=== PATIENT | female | born 1950 | race Hispanic/Latino ===

== ENCOUNTER 2018-09-18 06:26 | Day surgery (SDC) | payer MEDICARE ==
--- OUTSIDE RECORDS SUMMARY | 2018-09-18 06:30 | XMS REPORT | Clinical Summary ---
:1950 Author Organization [facility] Address [address] [place] [address] Care Team Providers Name Role Phone Evaristo Salmeron MD Primary Care Provider Allergies No Known Allergies Medications Medication Sig Dispensed Refills Start Date End Date Status temazepam (RESTORIL) 30 Take 30 mg by 0 Active mg capsule mouth nightly as needed for sleep. levothyroxine Take 50 mcg by 0 Active (SYNTHROID, LEVOXYL) 50 mouth every mcg tablet morning. nitroglycerin Place 1 patch on 0 Active (NITRODUR) 0.4 mg/hr the skin daily. nitroglycerin Place 1 spray 0 Active (NITROLINGUAL) 400 under the tongue mcg/spray spray every 5 (five) minutes as needed for chest pain. metoprolol succinate XL Take 50 mg by 0 Active (TOPROL-XL) 50 mg 24 hr mouth daily. tablet diclofenac-misoprostol Take 1 tablet by 0 Active (ARTHROTEC 75) 75-200 mouth 2 (two) mg-mcg EC tablet times a day. aspirin (ECOTRIN) 81 MG Take 81 mg by 0 Active enteric coated tablet mouth daily. omega-3 acid ethyl Take 1 g by mouth 0 Active esters (LOVAZA) 1 gram 2 (two) times a capsule day. isosorbide dinitrate Take 30 mg by 0 Active (ISORDIL) 30 MG tablet mouth 4 (four) times a day. triamterene-hydrochloro Take 1 tablet by 0 Active thiazid (MAXZIDE-25) mouth daily. 37.5-25 mg per tablet atorvastatin (LIPITOR) Take 20 mg by 0 Active 20 MG tablet mouth daily. Default OP ins ranolazine (RANEXA) 500 Take 500 mg by 0 Active MG 12 hr ER tablet mouth 2 (two) times a day. Active Problems No known active problems Social History Tobacco Use Types Packs/Day Years Used Date Never Smoker Alcohol Use Drinks/Week oz/Week Comments No Sex Assigned at Date Recorded Not on file Job Start Date Occupation Industry Not on file Not on file Not on file Travel History Travel Start Travel End No recent travel history available. Last Filed Vital Signs Not on file Plan of Treatment Health Maintenance Due Date Last Done Comments BREAST CANCER SCREENING 2001 COLONOSCOPY SCREENING 2001 SHINGLES VACCINES (#1) 2001 65+ PNEUMOCOCCAL VACCINE (1 of 2 - PCV13) 02/08/2016 INFLUENZA VACCINE 10/25/2018 Results Not on fileafter 09/17/2017 Insurance Payer Benefit Plan / Subscriber ID Effective Dates Phone Address Type Group MEDICARE MEDICARE PART A xxxxxxxxxx 2009-[employer] [place] Medicare AND B t AARP AARP SUPPLEMENT xxxxxxxxxxx 2016-Present Commercial Advance Directives Patient has advance care planning documents on file. For more information, please contact:[place] [address]
[2018-09-18] MEDS: KETOROLAC OPTHALMIC 5 ML BOT ONE ×3 (07:00→07:30)
[2018-09-18] MEDS: PHENYLEPHRINE 10% OPTH 5ML ONE ×3 (07:00→07:30)
[2018-09-18] MEDS: CYCLOPENTOLATE 2% OPTH 2 ML ONE ×3 (07:00→07:30)
[2018-09-18] MEDS: TROPICAMIDE 1% OPTH 3 ML BOT ONE ×3 (07:00→07:30)
[2018-09-18] MEDS: MOXIFLOXACIN HCL 0.5% 3ML OPTH OPTH ONE ×3 (07:00→07:30)
[2018-09-18] MEDS ORDERED: Ringers Lactate 1,000 ML IV ONE (07:12)
[2018-09-18] MEDS ORDERED: PROPOFOL 200 MG/20 ML VIAL IV ONE (07:34)
[2018-09-18] MEDS ORDERED: FENTANYL CITR 100 MCG/2 ML ONE (07:34)
[2018-09-18] MEDS ORDERED: LIDOCAINE 2% MPF 5 ML VIAL ONE (07:34)
[2018-09-18] MEDS ORDERED: MIDAZOLAM HCL 2 MG/2 ML INJ ONE (07:34)
[2018-09-18] MEDS ORDERED: BALANCED SALT IRRIG PLAIN 500 ML BTL IRR ONE (07:39)
[2018-09-18] MEDS ORDERED: EPINEPHRINE/PF 1 MG/ML AMP ONE (07:39)
[2018-09-18] MEDS ORDERED: TOBRADEX 0.3-0.1% OPTH OINTMENT ONE (07:40)
[2018-09-18] MEDS ORDERED: DUOVISC 1 KIT OPTH ONE (07:40)
[2018-09-18] MEDS ORDERED: HYALURONATE SODIUM 14 MG/ML SYR OPTH ONE (07:40)
[2018-09-18] MEDS ORDERED: GLYCOPYRROLATE 0.2 MG/ML SYR ONE (08:34)
[2018-09-18] MEDS ORDERED: EPHEDRINE SULF 50 MG/ML VIAL ONE (08:44)
--- NOTE | 2018-09-18 19:35 | OP ---
Date of Procedure: 09/18/2018 Surgeon: Guanakito Batista MD Preoperative Diagnosis: Visually significant cataract, right eye. Postoperative Diagnosis: Visually significant cataract, right eye. Procedure Performed: Complex cataract extraction right eye with placement of intraocular lens and CT R for zonular dialysis. Description Of Procedure: After being properly identified in the preoperative holding, the patient w as taken back to the operating room where a time-out was performed. The patient was then prepped and draped in the normal sterile fashion. Examination of the eye underneath the operating microscope re vealed a well-dilated pupil but with visible visualization of the zonules 360 degree. However, it di d appear to have a good red reflex and no loss of round contour to any of the lens was seen prior to initiation of surgery. Grasping the globe with a pair of 0.12 forceps, a paracentesis wound was made in the anterior chamber filled with Viscoat. Then, using a 2.75 mm Keratome blade, a superior incis ion wound was made. During this entry incision, a small tear in the disc space was noted extending a nd adjacent from the main incision. However, this did not pose a problem during the surgery or expan d any throughout the procedure. Using a pair of calipers set to 6 mm, this was held over the limbus and each of the 4 quadrants to find the anatomical center, and then the 6 mm caliper was centered ove r that in order to size our capsulorrhexis in. A continuous curvilinear capsulorrhexis was created u sing a cystotome and completed with an Utrata forceps. Of pertinent note, the anterior capsule displ ayed extreme laxity at this point, nevertheless, the capsulotomy was able to be carried out without c omplication. Hydrodissection and hydrodelineation were carefully carried out using a Hinojosa cannula a nd then the lens nucleus again very gently rotated. The cataract was removed using a standard divide and conquer technique. Once all 4 quadrants had been removed, the phaco handpiece was exchanged for an irrigation aspiration handpiece and the remaining cortical material was removed. A capsular paus e was undertaken and then the capsular bag inflated with DuoVisc and a 12.0 mm CTR model [id number] mad e by Lane, serial #[id number] was placed inside the capsular bag. The multifocal lens, a model ZXR 00 by Ronaldo and Ronaldo, power 22.0 diopter, serial #[id number] was injected into the capsular bag. Then the haptics were rotated to the horizontal position. The remaining viscoelastic was then brook ana laura and the wound hydrated. The superior wound displayed a small amount of leakage and despite of th e injection of an air bubble, it was not as tight as I would have liked it and therefore a single 10- 0 nylon suture was placed, which ensured complete tightness. The globe was again inflated to a good amount, and the procedure concluded with the lid speculum and drapes removed. The patient was patche d over TobraDex ointment and taken to the postoperative holding in stable condition having tolerated the procedure well. There were no complications other than the small Descemet's tear noted at the be ginning, but again this did not extend during the case and as well as out of the visual axis and shou ld not pose any significant visual problems or other sequelae. Implants are as above. The patient i s to follow up with myself Dr. Guanakito Batista at the [facility] [place] tomorrow morning. PEREZ/JULIA Voice ID: [id number] Report ID: [id number]
== END 2018-09-18 10:17 | disposition home or self-care (01) ==
LOC: OR 06:26
PROVIDERS: ATTEND Ophthalmology
PROC: 08RJ3JZ Replacement of Right Lens with Synthetic Substitute, Percutaneous Approach (ICD-10-PCS; principal; 2018-09-18 07:30)
DX: H26.9 Unspecified cataract (principal)
CPT/HCPCS: 66982; J2704; J0171; J2250; J3010

== ENCOUNTER 2018-11-25 12:25 | Emergency (ER) | payer MEDICARE ==
--- OUTSIDE RECORDS SUMMARY | 2018-11-25 12:27 | XMS REPORT | Clinical Summary ---
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
[2018-11-25] MEDS ORDERED: MORPHINE 4 MG/ML SYR ONE (13:13)
[2018-11-25] MEDS ORDERED: ONDANSETRON 4 MG/2 ML VIAL ONE (13:14)
[2018-11-25] MEDS ORDERED: NA CHLORIDE 0.9% 1,000 ML ONE (13:14)
[2018-11-25 13:50] LABS: Absolute Lymphocytes (CBC) 1.8 K/uL (0.7-4.9); Basophils % 0.9 % (0-1.3); Hematocrit 43.2 % (36.0-45.0); Lymphocytes % 32.1 % (15.3-44.8); MPV 8.6 fL (7.6-11.3); RBC Red Blood Cell Count 4.46 M/uL (3.86-4.86)
[2018-11-25 14:06] LABS: Albumin 3.7 g/dL (3.4-5.0); Bilirubin Direct 0.3 mg/dL (0-0.2); Bilirubin Total 1.1 mg/dL (0.2-1.0); Potassium 3.7 mmol/L (3.5-5.1); Protein, Total 6.9 g/dL (6.4-8.2)
--- NOTE | 2018-11-25 14:51 | RAD REPORT ---
EXAM DESCRIPTION: CT - Abdomen Pelvis W Contrast - 11/25/2018 2:36 pm CLINICAL HISTORY: Abdominal pain with diarrhea COMPARISON: 2017 TECHNIQUE: Computed axial tomography of the abdomen pelvis was obtained. 100 cc Isovue-300 was admin istered intravenously. Oral contrast was not requested which limits evaluation of bowel. All CT scans are performed using dose optimization technique as appropriate and may include automated exposure control or mA/KV adjustment according to patient size. FINDINGS: The liver, spleen, pancreas, adrenal and kidneys appear unremarkable. Diverticula stem from the colon without evidence of diverticulitis. Hysterectomy . Cholecystectomy IMPRESSION: No acute abnormality is displayed.
--- NOTE | 2018-11-25 15:26 | ER ---
Nurse's Notes [facility] Name: Evon Bowman Age: 68 yrs Sex: Female : 1950 Arrival Date: 11/25/2018 Time: 12:28 Bed 17 Private MD: Diagnosis: Generalized abdominal pain;Diarrhea, unspecified Presentation: 11/25 12:34 Presenting complaint: Patient states: I was dx with bleeding ulcers and diverticulitis la1 by Dr. aceves after endoscopy. I have a CT ordered but cannot get in till nov and the pain is too bad and I have too much diarrhea. Transition of care: patient was not received from another setting of care. Onset of symptoms was November 25, 2018. Risk Assessment: Do you want to hurt yourself or someone else? Patient reports no desire to harm self or others. Initial Sepsis Screen: Does the patient meet any 2 criteria? No. Patient's initial sepsis screen is negative. Does the patient have a suspected source of infection? No. Patient's initial sepsis screen is negative. Care prior to arrival: None. 12:34 Method Of Arrival: Ambulatory la1 12:34 Acuity: BRYN 3 la1 Historical: - Allergies: 12:35 No Known Allergies; la1 - PMHx: 12:35 Angina; CAD; Degenerative disc disease; High Cholesterol; Hypertension; Hypothyroidism; la1 Kidney stones; - Immunization history:: Adult Immunizations up to date. - Social history:: Smoking status: Patient/guardian denies using tobacco. - Ebola Screening: : No symptoms or risks identified at this time. Screenin:55 Abuse screen: Denies threats or abuse. Nutritional screening: No deficits noted. aa5 Tuberculosis screening: No symptoms or risk factors identified. Fall Risk None identified. Assessment: 12:55 General: Appears uncomfortable, Behavior is calm, cooperative. Pain: Complains of pain aa5 in right upper quadrant, left upper quadrant, right lower quadrant and left lower quadrant Pain does not radiate. Pain currently is 8 out of 10 on a pain scale. Quality of pain is described as sharp, tender, Pain began 2 weeks ago Is continuous. Neuro: Level of Consciousness is awake, alert, obeys commands, Oriented to person, place, time, situation. Cardiovascular: Heart tones S1 S2 present Rhythm is regular. Respiratory: Airway is patent Respiratory effort is even, unlabored, Respiratory pattern is regular, symmetrical, Breath sounds are clear bilaterally. GI: Abdomen is round non-distended, Bowel sounds present X 4 quads. Abd is soft X 4 quads Abdomen is tender to palpation in right upper quadrant, left upper quadrant, right lower quadrant and left lower quadrant Reports "loose stool" Patient currently denies nausea, vomiting. : Denies burning with urination, inability to void. EENT: No signs and/or symptoms were reported regarding the EENT system. Derm: Skin is pink, warm \\T\\ dry. Musculoskeletal: Range of motion: intact in all extremities. 13:15 Reassessment: Patient is alert, oriented x 3, equal unlabored respirations, skin aa5 warm/dry/pink. Pt notified of wait time for lab results. . 13:30 Reassessment: Patient is alert, oriented x 3, equal unlabored respirations, skin aa5 warm/dry/pink. Patient states feeling better. Patient states symptoms have improved. Pain: Pain currently is 3 out of 10 on a pain scale. 14:50 Reassessment: Patient is alert, oriented x 3, equal unlabored respirations, skin aa5 warm/dry/pink. Pt back from CT scan. Pt sitting up in bed. Pt notified of wait time for CT scan results. . 15:45 Reassessment: To bedside to d/c patient. Pt appears upset, pt states "I want to see a aa5 doctor because I feel like there is something wrong with my stomach and the nurse practitioner did not find out anything wrong with me". Notified patient that MD could come and evaluate her if she wishes but CT scan did not show any significant findings and outcome is d/c home, pt reminded about ER's inability to recognize/treat all illness in a single ER visit (as stated on d/c paperwork). Pt states "I understand so I am okay with going home now if the nurse practitioner thinks I should". Pt does not appear upset after explaining POC. Pt states "I will call GI early Monday morning and follow-up". Vital Signs: 12:35 BP 160 / 100; Pulse 70; Resp 16; Temp 98.4; Pulse Ox 100% on R/A; Weight 95.25 kg; la1 Height 5 ft. 9 in. (175.26 cm); 13:30 BP 164 / 88; Pulse 74; Resp 16 S; Pulse Ox 98% on R/A; Pain 3/10; aa5 15:00 BP 165 / 94; Pulse 72; Resp 18 S; Temp 98.2(TE); Pulse Ox 99% on R/A; Pain 3/10; aa5 12:35 Body Mass Index 31.01 (95.25 kg, 175.26 cm) la1 ED Course: 12:28 Patient arrived in ED. mr 12:35 Triage completed. la1 12:35 Arm band placed on right wrist. la1 12:37 Bertha Turk, RN is Primary Nurse. aa5 12:40 Jolanta Weeks FNP-C is PHCP. kb 12:40 Jossue Wright MD is Attending Physician. kb 12:55 Patient has correct armband on for positive identification. Placed in gown. Bed in low aa5 position. Call light in reach. Side rails up X2. Adult w/ patient. 13:04 Radiology exam delayed due to lab results not completed at this time. (BUN/Creatinine). mw3 13:10 Missed attempt(s): 22 gauge in right forearm. Missed attempt by Sharif Villa. Bleeding aa5 controlled, band aid applied, catheter tip intact. 13:15 Initial lab(s) drawn, by me, sent to lab. Inserted saline lock: 20 gauge in right aa5 forearm, using aseptic technique. Blood collected. 14:36 CT Abd/Pelvis - IV Contrast Only In Process Unspecified. EDMS 16:00 IV discontinued, intact, bleeding controlled, No redness/swelling at site. Pressure aa5 dressing applied. 16:00 No provider procedures requiring assistance completed. aa5 Administered Medications: 13:15 Drug: NS 0.9% 1000 ml Route: IV; Rate: 1000 ml; Site: right forearm; aa5 14:50 Follow up: IV Status: Completed infusion; IV Intake: 1000ml aa5 13:15 Drug: Zofran 4 mg Route: IVP; Site: right forearm; aa5 13:30 Follow up: Response: No adverse reaction aa5 13:15 Drug: morphine 4 mg Route: IVP; Site: right forearm; aa5 13:30 Follow up: Response: No adverse reaction aa5 Intake: 14:50 IV: 1000ml; Total: 1000ml. aa5 Outcome: 15:25 Discharge ordered by MD. kb 16:00 Discharged to home ambulatory, with significant other. aa5 16:00 Condition: stable 16:00 Discharge instructions given to patient, Instructed on discharge instructions, follow up and referral plans. medication usage, Demonstrated understanding of instructions, follow-up care, medications, Prescriptions given X 1. 16:03 Patient left the ED. aa5 Signatures: Dispatcher [employer] EDMS Jolanta Weeks, M[employer]ESS [employer]OXS[employer]INGS SUPERVISOR-Jillian MATTRESS AND [employer] SUPERVISOR-Mu Verenice Morales, Bertha, RN RN aa5 Igor Martines, RN RN la1 Jamie, Daisy 3 Ashleigh Cooper 3 Corrections: (The following items were deleted from the chart) 16:16 16:00 Reassessment: To bedside to d/c patient. Pt appears upset, pt states "I want to aa5 see a doctor because I feel like there is something wrong with my stomach and the nurse practitioner did not find out anything wrong with me". Notified patient that MD could come and evaluate her if she wishes but CT scan did not show any significant findings and outcome is d/c home, pt reminded about ER's inability to recognize/treat all illness in a single ER visit (as stated on d/c paperwork). Pt states "I understand so I am okay with going home now if the nurse practitioner thinks I should". Pt does not appear upset after explaining POC. Pt states "I will call GI early Monday morning and follow-up". aa5 17:49 13:20 Missed attempt(s): 22 gauge in right forearm. Bleeding controlled, band aid aa5 applied, catheter tip intact. 3 17:54 14:45 IV Status: Completed infusion; IV Intake: 1000ml aa5 aa5
--- NOTE | 2018-11-25 15:27 | EDPHYS ---
Physician Documentation [facility] Name: Evon Bowman Age: 68 yrs Sex: Female : 1950 Arrival Date: 11/25/2018 Time: 12:28 Bed 17 Private MD: ED Physician Jossue Wright HPI: 11/25 13:15 This 68 yrs old Female presents to ER via Ambulatory with complaints of kb Abdominal Pain, Diarrhea. 13:15 The patient presents with abdominal pain that is diffuse. Onset: The symptoms/episode kb began/occurred 2 week(s) ago. The symptoms do not radiate. Associated signs and symptoms: Pertinent positives: diarrhea. The symptoms are described as crampy. Modifying factors: The symptoms are alleviated by nothing, the symptoms are aggravated by nothing. Severity of pain: At its worst the pain was moderate in the emergency department the pain is unchanged. The patient has not experienced similar symptoms in the past. 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 Pt reports abd pain and diarrhea for 2 weeks[address] Was seen by Dr Cordon and given cipro, flagyl and zofran, but symptoms persist. Reports she had a scope done that showed some ulcers and is scheduled for a CT on the but cannot wait that long.. Historical: - Allergies: 12:35 No Known Allergies; la1 - PMHx: 12:35 Angina; CAD; Degenerative disc disease; High Cholesterol; Hypertension; Hypothyroidism; la1 Kidney stones; - Immunization history:: Adult Immunizations up to date. - Social history:: Smoking status: Patient/guardian denies using tobacco. - Ebola Screening: : No symptoms or risks identified at this time. ROS: 13:15 Constitutional: Negative for fever, chills, and weight loss, ENT: Negative for injury, kb pain, and discharge, Neck: Negative for injury, pain, and swelling, Cardiovascular: Negative for chest pain, palpitations, and edema, Respiratory: Negative for shortness of breath, cough, wheezing, and pleuritic chest pain, Back: Negative for injury and pain, MS/Extremity: Negative for injury and deformity, Skin: Negative for injury, rash, and discoloration, Neuro: Negative for headache, weakness, numbness, tingling, and seizure. 13:15 Abdomen/GI: Positive for abdominal pain, diarrhea. Exam: 13:15 Constitutional: This is a well developed, well nourished patient who is awake, alert, kb and in no acute distress. Head/Face: Normocephalic, atraumatic. Neck: Trachea midline, no thyromegaly or masses palpated, and no cervical lymphadenopathy. Supple, full range of motion without nuchal rigidity, or vertebral point tenderness. No Meningismus. Chest/axilla: Normal chest wall appearance and motion. Nontender with no deformity. No lesions are appreciated. Cardiovascular: Regular rate and rhythm with a normal S1 and S2. No gallops, murmurs, or rubs. Normal PMI, no JVD. No pulse deficits. Respiratory: Lungs have equal breath sounds bilaterally, clear to auscultation and percussion. No rales, rhonchi or wheezes noted. No increased work of breathing, no retractions or nasal flaring. Abdomen/GI: Soft, non-tender, with normal bowel sounds. No distension or tympany. No guarding or rebound. No evidence of tenderness throughout. Skin: Warm, dry with normal turgor. Normal color with no rashes, no lesions, and no evidence of cellulitis. MS/ Extremity: Pulses equal, no cyanosis. Neurovascular intact. Full, normal range of motion. Neuro: Awake and alert, GCS 15, oriented to person, place, time, and situation. Cranial nerves II-XII grossly intact. Motor strength 5/5 in all extremities. Sensory grossly intact. Cerebellar exam normal. Normal gait. Vital Signs: 12:35 BP 160 / 100; Pulse 70; Resp 16; Temp 98.4; Pulse Ox 100% on R/A; Weight 95.25 kg; la1 Height 5 ft. 9 in. (175.26 cm); 13:30 BP 164 / 88; Pulse 74; Resp 16 S; Pulse Ox 98% on R/A; Pain 3/10; aa5 15:00 BP 165 / 94; Pulse 72; Resp 18 S; Temp 98.2(TE); Pulse Ox 99% on R/A; Pain 3/10; aa5 12:35 Body Mass Index 31.01 (95.25 kg, 175.26 cm) la1 MDM: 12:40 Patient medically screened. kb 13:15 Data reviewed: vital signs, nurses notes. Data interpreted: Pulse oximetry: on room air kb is 100 %. Interpretation: normal. 15:24 Counseling: I had a detailed discussion with the patient and/or guardian regarding: the kb historical points, exam findings, and any diagnostic results supporting the discharge/admit diagnosis, lab results, radiology results, the need for outpatient follow up, a family practitioner, to return to the emergency department if symptoms worsen or persist or if there are any questions or concerns that arise at home. 11/25 12:56 Order name: Basic Metabolic Panel; Complete Time: 14:10 kb 11/25 12:56 Order name: CBC with Diff; Complete Time: 14:07 kb 11/25 12:56 Order name: Hepatic Function; Complete Time: 14:10 kb 11/25 12:56 Order name: Lipase; Complete Time: 14:10 kb 11/25 12:56 Order name: CT Abd/Pelvis - IV Contrast Only; Complete Time: 15:17 kb 11/25 15:25 Order name: Urine Dipstick--Ancillary (enter results); Complete Time: 15:34 eb 11/25 12:56 Order name: IV Saline Lock; Complete Time: 13:53 kb 11/25 12:56 Order name: Labs collected and sent; Complete Time: 13:53 kb Administered Medications: 13:15 Drug: NS 0.9% 1000 ml Route: IV; Rate: 1000 ml; Site: right forearm; aa5 14:50 Follow up: IV Status: Completed infusion; IV Intake: 1000ml aa5 13:15 Drug: Zofran 4 mg Route: IVP; Site: right forearm; aa5 13:30 Follow up: Response: No adverse reaction aa5 13:15 Drug: morphine 4 mg Route: IVP; Site: right forearm; aa5 13:30 Follow up: Response: No adverse reaction aa5 Disposition: 11/26 09:23 Co-signature as Attending Physician, Jossue Wright MD I agree with the assessment and cece plan of care. Disposition: 11/25/18 15:25 Discharged to Home. Impression: Generalized abdominal pain, Diarrhea, unspecified. - Condition is Stable. - Discharge Instructions: Food Choices to Help Relieve Diarrhea, Adult, Abdominal Pain, Adult, [id number], Diarrhea, Adult, [id number]. - Prescriptions for Bentyl 20 mg Oral Tablet - take 1 tablet by ORAL route every 6 hours As needed; 20 tablet. - Medication Reconciliation Form, Thank You Letter, Antibiotic Education, Prescription Opioid Use form. - Follow up: Emergency Department; When: As needed; Reason: Worsening of condition. Follow up: Private Physician; When: 2 - 3 days; Reason: Recheck today's complaints, Continuance of care, Re-evaluation by your physician. Signatures: Dispatcher [employer] EDDE Jolanta Weeks, SALMON TROLL FISHER-C SALMON TROLL FISHER-Jossue Soto MD MD cha Calderon, Audri RN RN aa5 Igor Martines RN RN la1 Corrections: (The following items were deleted from the chart) 11/25 16:03 15:25 11/25/2018 15:25 Discharged to Home. Impression: Generalized abdominal pain; aa5 Diarrhea, unspecified. Condition is Stable. Forms are Medication Reconciliation Form, Thank You Letter, Antibiotic Education, Prescription Opioid Use. Follow up: Emergency Department; When: As needed; Reason: Worsening of condition. Follow up: Private Physician; When: 2 - 3 days; Reason: Recheck today's complaints, Continuance of care, Re-evaluation by your physician. kb
[2018-11-25 15:32] LABS: Urine Blood NEGATIVE (NEG); Urine Glucose NEGATIVE (NEG); Urine Protein NEGATIVE (NEG); Urine Specific Gravity 1.015 (1.005-1.030); Urine pH 6.5 (5.0-7.0)
== END 2018-11-25 16:03 | disposition home or self-care (01) ==
LOC: ER 12:25
DX: R10.84 Generalized abdominal pain (principal); R19.7 Diarrhea, unspecified
CPT/HCPCS: 96361; 85025; 80048; 36415; 80076; 81003; 83690; 74177; 96375; 96374; 99284; Q9967; J7030; J2405